=== PATIENT | male | born 1975 | race Two or more races ===

== ENCOUNTER 2019-01-02 14:34 | Inpatient (IN) | payer BC ==
[~2019-01-02] VITALS: Ht 177.8 cm; Wt 93.4 kg
--- NOTE | 2019-01-02 14:36 | NUR ---
AAOX3, BIB FAMILY C/O NON RADIATING MID STERNAL CHEST PAIN 15-20 MINUTES AGO. RR IS EVEN AND UNLABORED WITH NAD NOTED. SKIN IS WARM AND DRY. PLACED ON THE MONITOR. WILL CONTINUOUSLY MONITOR THE PATIENT. AWAITING MD FOR EVAL.
[2019-01-02] MEDS ORDERED: NITROGLYCERIN 0.4 MG/TAB BOTTLE ONE (14:52)
[2019-01-02] MEDS ORDERED: ASPIRIN 325 MG TABLET ONE (14:52)
[2019-01-02] MEDS ORDERED: ASPIRIN 325 MG TABLET PO ONE (15:00)
[2019-01-02] MEDS ORDERED: NITROGLYCERIN 0.4 MG/TAB BOTTLE SL ONE (15:00)
--- NOTE | 2019-01-02 15:02 | NUR ---
PATIENT DENIES ANY CHEST PAIN AFTER 1ST DOSE OF NITRO SL. Addendum: 01/02/19 at [address] CEVALLOS MADE AWARE.
[2019-01-02 15:07] LABS: BASOPHILS # (AUTO) 0.1 /CMM (0.0-0.2); BASOPHILS % (AUTO) 0.8 % (0.0-2.0); EOSINOPHILS % (AUTO) 1.3 % (0.0-6.0); HEMATOCRIT 45 % (39-51); HEMOGLOBIN 14.5 g/dL (13.5-17.5); LYMPHOCYTES # (AUTO) 2.7 /CMM (0.8-4.8); LYMPHOCYTES % (AUTO) 30.2 % (20.0-44.0); MEAN CORPUSCULAR HGB CONC 32 g/dl (31.0-36.0); MEAN CORPUSCULAR VOLUME 80 fL (80-96); MONOCYTES # (AUTO) 0.6 /CMM (0.1-1.30); NEUTROPHILS # (AUTO) 5.4 /CMM (1.8-8.9); NEUTROPHILS % (AUTO) 60.7 % (43.0-81.0); PLATELET COUNT (AUTO) 194 /CMM (150-450); WHITE BLOOD COUNT (AUTO) 8.9 K/uL (4.3-11.0)
[2019-01-02 15:16] LABS: CALCIUM, SERUM 8.7 mg/dL (8.5-10.1); CARBON DIOXIDE 27 mmol/L (21-32); CHLORIDE 105 mmol/L (98-107); GLUCOSE 94 mg/dL (74-106); POTASSIUM 3.9 mmol/L (3.5-5.1); SODIUM SERUM 141 mmol/L (136-145); UREA NITROGEN, BLOOD 22 mg/dL (7-18)
--- NOTE | 2019-01-02 16:44 | NUR ---
Patient is resting comfortably in bed with eyes closed. Easily aroused. VSS
--- NOTE | 2019-01-02 18:55 | NUR ---
Patient is resting comfortably in bed with eyes closed. Easily aroused. VSS
--- NOTE | 2019-01-02 19:14 | NUR ---
Report given to JONATHAN Stern for VIJAY.
--- NOTE | 2019-01-02 19:29 | NUR ---
PER RN FORM BLOCK MAKER MIKE RAYMOND TO ADMIT
--- NOTE | 2019-01-02 19:31 | NUR ---
PT ASSIGNED TO BED 322 TELE
--- NOTE | 2019-01-02 19:40 | NUR ---
REPORT GIVEN TO IVANA CASTILLO FOR VIJAY
[2019-01-02 20:10] VITALS: BP 150/92
[2019-01-02] MEDS ORDERED: ZOLPIDEM TARTRATE 5 MG TABLET PO PRN (22:00)
[2019-01-02] MEDS ORDERED: MAG HYDROX/AL HYDROX/SIMETH 30 ML UDC PO PRN (22:00)
[2019-01-02] MEDS ORDERED: Z GUARD REMEDY 2 OZ OINT TP PRN (22:00)
[2019-01-02] MEDS ORDERED: HYDROCODONE/APAP 5/325MG 1 EACH TABLET PO PRN (22:00)
[2019-01-02] MEDS ORDERED: ACETAMINOPHEN 325 MG TABLET PO PRN (22:00)
[2019-01-02] MEDS ORDERED: ONDANSETRON HCL/PF 4 MG/2 ML VIAL IVP PRN (22:00)
[2019-01-02] MEDS ORDERED: NITROGLYCERIN 0.4 MG/TAB BOTTLE SL PRN (22:00)
[2019-01-02] MEDS ORDERED: MORPHINE SULFATE INJ 2 MG/ML DISP.SYRIN IV PRN (22:00)
[2019-01-02] MEDS ORDERED: MAGNESIUM HYDROXIDE 30 ML UDC PO PRN (22:00)
[2019-01-02] MEDS ORDERED: ATORVASTATIN 10 MG TABLET PO SCH (22:00)
[2019-01-02 22:42] VITALS: BP 125/75
--- NOTE | 2019-01-02 23:29 | NUR ---
TELE/RN RECEIVED PATIENT FROM [facility] AT [facility] [employer]. PATIENT WAS AWAKE, ALERT, ORIENTED, COMFORTABLE, NO C/O PAIN, NO DISTRESS NOTED, PLAN OF CARE DISCUSSED WITH THE PATIENT, VERBALIZED UNDERSTANDING AND AGREEMENT, TAUGHT THE USE LF CALL LIGHT AT PLACED IT AT BEDSIDE WITHIN REACH. WILL MONITOR.
[2019-01-03] VITALS: BP 129/72
--- NOTE | 2019-01-03 01:09 | NUR ---
TELE/RN PATIENT IS SLEEPING, AROUSABLE, APPEAR COMFORTABLE, NO SIGNS OF DISTRESS NOTED, CALL LIGHT IN REACH, WILL CONTINUE TO MONITOR.
[2019-01-03 04:00] VITALS: BP 119/65
--- NOTE | 2019-01-03 06:06 | NUR ---
TELE/RN PATIENT IS SLEEPING AT THIS TIME, COMFORTABLE, NO C/O PAIN, NO DISTRESS NOTED, ALL NEEDS ATTENDED AT THIS TIME. WILL CONTINUE TO [place].
[2019-01-03 06:58] LABS: BASOPHILS % (AUTO) 0.4 % (0.0-2.0); EOSINOPHILS % (AUTO) 1.9 % (0.0-6.0); HEMATOCRIT 45 % (39-51); HEMOGLOBIN 14.8 g/dL (13.5-17.5); LYMPHOCYTES # (AUTO) 2.4 /CMM (0.8-4.8); LYMPHOCYTES % (AUTO) 35.9 % (20.0-44.0); MEAN CORPUSCULAR HGB CONC 33 g/dl (31.0-36.0); MEAN CORPUSCULAR VOLUME 79 fL (80-96); MONOCYTES # (AUTO) 0.6 /CMM (0.1-1.30); MONOCYTES % (AUTO) 8.6 % (2.0-12.0); NEUTROPHILS # (AUTO) 3.6 /CMM (1.8-8.9); NEUTROPHILS % (AUTO) 53.2 % (43.0-81.0); PLATELET COUNT (AUTO) 179 /CMM (150-450); RED BLOOD CELL COUNT(AUTO) 5.73 MIL/uL (4.5-6.0); WHITE BLOOD COUNT (AUTO) 6.8 K/uL (4.3-11.0)
[2019-01-03 07:13] LABS: THYROID STIMULATING HORMONE 1.683 uIU/mL (0.358-3.74)
[2019-01-03] MEDS ORDERED: PANTOPRAZOLE 40 MG TABLET.DR PO SCH (07:30)
--- NOTE | 2019-01-03 07:45 | NUR ---
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 Semi-Fowlers position. Alert and oriented x4, able to make needs known. No complaints of shortness of breath, chest pain or pain at this time. Respirations even and unlabored on room air, no acute distress noted. External cafeteria monitor in place, current reading a-fib at 121 bpm. Peripheral IV to the left AC 20 gauge, intact, patent and saline locked. Updated patient on current plan of care and safety measures. Patient verbalized understanding. Safety and fall precautions in place: bed in lowest and locked position, side rails up x2, bed alarm on, call light and personal possessions within reach. Will continue to monitor and intervene as needed.
[2019-01-03 08:00] VITALS: BP 124/84
[2019-01-03 09:00] VITALS: BP 124/84
[2019-01-03] MEDS ORDERED: ASPIRIN EC 81 MG TABLET.DR PO SCH (09:00)
[2019-01-03] MEDS ORDERED: METOPROLOL TARTRATE 25 MG TABLET PO SCH (09:00)
[2019-01-03] MEDS ORDERED: LISINOPRIL (10MG) 10 MG TABLET PO SCH (09:00)
--- NOTE | 2019-01-03 09:45 | NUR ---
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 No complaints of shortness of breath, chest pain or pain at this time. Respirations even and unlabored on room air, no acute distress noted. Ambulates with steady gait, vital signs stable. Peripheral IV to the left AC 20 gauge, removed with catheter tip intact. No redness, swelling or bleeding of the site noted. Patient signed out against medical advice, educated about emergency symptoms of chest pain and shortness of breath. Refused skin assessment and photos. Also refused to take Exitcare with him. ID bands removed from patient. Discharged with all personal belongings, form signed. Escorted to [facility] by VARSHA Roper and left with family. Addendum: 01/03/19 at 1038 by GARFIELD ROBERTO RN Incident report filled out and signed. ID number: [id number].
[2019-01-03 10:00] LABS: MAGNESIUM 2.2 mg/dL (1.8-2.4); PHOSPHORUS 4.4 mg/dL (2.5-4.9); POTASSIUM 4.3 mmol/L (3.5-5.1)
[2019-01-03 10:06] LABS: CALCIUM, SERUM 8.7 mg/dL (8.5-10.1)
== END 2019-01-03 09:45 | disposition left against medical advice (07) | DRG 198 ==
LOC: ER 14:41 → TELE 19:56 → MED 01-03 08:28
PROVIDERS: ADMIT Hospitalist; ATTEND Hospitalist
DX: I25.10 Atherosclerotic heart disease of native coronary artery without angina pectoris (principal); E66.9 Obesity, unspecified; I10 Essential (primary) hypertension; Z68.29 Body mass index [BMI] 29.0-29.9, adult; Z91.14 Patient's other noncompliance with medication regimen
CPT/HCPCS: 36415; 71045-TC; 80048-TC; 80061-TC; 83735-TC; 84100-TC; 84443-TC; 84484-TC; 85025-TC; 87081-TC; 93307-TC; G0378